=== PATIENT | female | born 1970 ===

== ENCOUNTER 2024-02-08 12:43 | Day surgery (SDC) | payer OTHER, SELFPAY ==
[2024-02-08] MEDS: LACTATED RINGERS 1,000 ML 42 ML IV (13:19)
--- NOTE | 2024-02-08 13:20 | PM.HP.1 ---
History of Present Illness History of Present Illness Date Patient Seen: 02/08/24 Time Patient Seen: 13:20 Chief complaint: Screening Colonoscopy Narrative: 53-year-old woman here for 1st time screening colonoscopy. No family history of colon cancer. No abdominal concerns. COUNTS INCLUDE 234 BEDS AT THE [facility] Medical History section wound complication HTN (hypertension) Surgical History Previous section Social History Smoking Status: Never smoker alcohol intake: current Meds Home Medications and Allergies Home Medications Medication Instructions Recorded Confirmed Type hydrochlorothiazide 12.5 mg tablet 12.5 mg PO DAILY 02/08/24 02/08/24 History levothyroxine 75 mcg tablet 75 mcg PO DAILY 02/08/24 02/08/24 History (Synthroid) lisinopril 40 mg tablet 40 mg PO DAILY 02/08/24 02/08/24 History Allergies Allergy/AdvReac Type Severity Reaction Status Date / Time No Known Drug Allergies Allergy Verified 02/08/24 13:18 Exam Narrative Exam Narrative: General adult woman alert oriented no acute distress Chest nonlabored respiration Extremities warm well perfused Assessment & Plan Assessment & Plan narrative: The patient requires colorectal screening and colonoscopy is recommended. Technical details were discussed. Risks, benefits, alternatives explained. Risks including but not limited to myocardial infarction, aspiration, bleeding, pain, missed lesion, incomplete examination, need for further radiographic studies, intestinal injury, and need for major abdominal surgery were discussed. All questions were answered to their satisfaction, and they are in agreement with this plan. Time-Based Coding :: [TOTAL MINUTES] spent with patient and on the chart (including review of chart, obtaining history, exam, reviewing outside data, placing orders, documenting exam and treatment plan, and counseling patient) on [DATE].
[2024-02-08 13:22] VITALS: BP 129/78; PULSE 64; RESP 16; TEMP 36.7; O2SAT 100
[2024-02-08 14:11] VITALS: BP 103/57; PULSE 69; RESP 22; O2SAT 98
--- NOTE | 2024-02-08 14:14 | P.OP.COLON_ITS ---
Operative Date/Time/Diagnoses Date of procedure: 02/08/24 Time of procedure: 14:14 Pre-op diagnosis: Colorectal screening Procedure & Clinicians Study performed: Screening colonoscopy Same procedure as scheduled: Yes Indications: Colorectal screening Surgeon: Nolan Marin Procedure Notes Procedure in detail: The history and physical was performed/updated and the patient is ASA class is 2. The procedure was discussed in detail with the patient. Potential risks co mplications including infection, bleeding, missed diagnosis, perforation, need for surgery, and were explained. Their questions were answered and informed consent was obtained. Patient was brought to the procedure room and placed standard monitoring equipment. The patient's vital signs were monitored continuously throughout the entire procedure. Prior to starting time-out was performed. The patient was placed in the left lateral recumbent position. Procedural sedation was administered by anesthesia. Examination began with a thorough inspection of the perianal area there was no evidence of fissures, fistulae, external hemorrhoids or cutaneous malignancy. The colonoscopy scope was then placed into the anal canal and was advanced to the cecum, which was identified by the ileocecal valve, the appendiceal orifice and the confluence of the taenia. The scope was then slowly withdrawn examining colon thoroughly in all directions, irrigating it of any residual stool. The scope was retroflexed within the rectum The patient tolerated the procedure well. They will be discharged once criteria are met. The prep was of good/excellent quality. The withdrawl time was 6 minutes. FINDINGS * Unremarkable colonoscopy. No masses polyps or inflammation. Specimen(s): none sent Impression: Normal colonoscopy Post-procedure Recommendations: Colonoscopy in 10 years Disposition: same day surgery
[2024-02-08 14:15] VITALS: BP 111/64; PULSE 69; RESP 22; O2SAT 98
[2024-02-08 14:20] VITALS: BP 106/62; PULSE 67; RESP 25; O2SAT 99
[2024-02-08 14:24] VITALS: BP 115/62; PULSE 64; RESP 23; TEMP 36.7; O2SAT 98
== END 2024-02-08 14:39 | disposition home or self-care (01) ==
PROVIDERS: PCP Student in an Organized Health Care Education/Training Program; Referring Provider Surgery; Visit Provider Surgery
PROC: 0DJD8ZZ Inspection of Lower Intestinal Tract, Via Natural or Artificial Opening Endoscopic (ICD-10-PCS; CPT 45378; principal; 2024-02-08 13:45)
DX: Z12.11 Encounter for screening for malignant neoplasm of colon (principal)
CPT/HCPCS: 45378; J2704